=== PATIENT | female | born 1965 | race Caucasian/White ===

== ENCOUNTER 2020-05-25 18:24 | Observation (INO) | payer OTHER ==
[~2020-05-25] VITALS: Ht 152.4 cm; Wt 150.1 kg
[~2020-05-25 18:24] MED LIST: ASCO500 PO; ASPI81CH; ASPI81CH PO; ASPI81EC PO; ATEN50; BCP'S; CHOL10002 PO; CITA20 PO; CYAN1000; CYAN500 PO; DEXALANT PO; DULO30 PO; Daily Vite1 EACH PO; ERGO400 PO; ESOM20; FERR325; FERR325 PO; FISH1000; FISH1000 PO; Fish Oil 10001000 MG PO; HYDACE10B PO; HYDACE5 PO; HYDCHL25; HYDCHL25 PO; Hair, Skin & N1 EACH PO; IRON PO; LISI20 PO; LORA2 PO; LOSA25 PO; LOSA50; LOSA50 PO; MAGOXI400 PO; METF500; METF500 PO; MULTI VITAMIN1 EACH; MULVITMIND PO; NAPR500 PO; Nephro-Vite RX1 EA SL; ONDA4 PO; Omeprazole20 M1 PO; PANT40; PANT40 PO; PROM25 PO; RXLORA1 PO; SPIR25; SPIR25 PO; SULTRIDS PO; VENL37.5; VENL75ER PO; Vitamin D2000 UNIT; [UNRECOGNIZED DRUG - REMARK]
[2020-05-25 19:19] LABS: BASOPHILS ABSOLUTE AUTO 0.13 K/mm3 (0.00-0.23); BASOPHILS PERCENT AUTO 1 % (0-2); EOSINOPHILS ABSOLUTE AUTO 0.18 K/mm3 (0.00-0.68); EOSINOPHILS PERCENT AUTO 1 % (0-6); Hematocrit 45.5 % (33.0-51.0); Hemoglobin 13.9 g/dL (11.5-16.0); IMMATURE GRAN ABSOLUTE AUTO 0.07 K/mm3 (0.00-0.10); IMMATURE GRAN PERCENT AUTO 0 % (0-1); LYMPHOCYTES ABSOLUTE AUTO 4.79 K/mm3 (0.84-5.20); LYMPHOCYTES PERCENT AUTO 29 % (21-46); MONOCYTES ABSOLUTE AUTO 1.08 K/mm3 (0.16-1.47); MONOCYTES PERCENT AUTO 7 % (4-13); Mean Corpuscular HGB Conc 30.5 g/dL (31.5-36.5); Mean Corpuscular Volume 88 fL (80-100); NEUTROPHILS ABSOLUTE AUTO 10.44 K/mm3 (1.96-9.15); NEUTROPHILS PERCENT AUTO 63 % (41-73); Platelet Count 374 K/mm3 (150-400); RDW Coefficient Variation 13.7 % (11.7-14.2); RDW Standard Deviation 44.5 fL (35.1-46.3); Red Blood Cell Count 5.15 M/mm3 (3.80-5.20); White Blood Cell Count 16.69 K/mm3 (4.00-11.30)
[2020-05-25 19:43] LABS: Alanine Aminotransfer (ALT/SGP 33 U/L (12-78); Albumin, Blood 3.5 g/dL (3.4-5.0); Albumin/Globulin Ratio 0.7 (0.8-1.8); Alk Phos 170 U/L (50-136); Anion Gap 11 mmol/L (6-16); Aspartate Aminotrans (AST/SGOT 28 U/L (12-37); Bilirubin, Total 0.4 mg/dL (0.1-1.0); Blood Urea Nitrogen 16 mg/dL (8-24); Bun/Creatinine Ratio 28.5 (12.0-20.0); CO2, Blood 19 mmol/L (21-32); Calcium, Blood 9.6 mg/dL (8.5-10.1); Chloride, Blood 105 mmol/L (98-108); Creatinine, Blood 0.56 mg/dL (0.40-1.00); Globulin, Blood 4.7 g/dL (2.2-4.0); Glomerular Filtration Rate >60 (60-); Glucose, Blood 94 mg/dL (70-99); Potassium, Blood 4.3 mmol/L (3.5-5.5); Sodium, Blood 135 mmol/L (136-145); Total Protein, Blood 8.2 g/dL (6.4-8.2); Troponin I <0.015 ng/mL (0.000-0.040)
[2020-05-25] MEDS ORDERED: NORTRIPTYLINE H10 M1 PO (20:49)
[2020-05-25] MEDS ORDERED: ZANAFLEX4 M1 PO (20:50)
[2020-05-25] MEDS ORDERED: Lovastatin20 MG PO (20:51)
[2020-05-25] MEDS ORDERED: Aspir 8181 MG PO (20:53)
[2020-05-25] MEDS ORDERED: LOSA50 PO (21:08)
[2020-05-25] MEDS ORDERED: MELATONIN5 M1 PO (21:09)
[2020-05-25] MEDS ORDERED: FISH OIL 1,2001 EAC7 PO (22:21)
[2020-05-26 03:17] LABS: BASOPHILS PERCENT AUTO 1 % (0-2); EOSINOPHILS ABSOLUTE AUTO 0.12 K/mm3 (0.00-0.68); EOSINOPHILS PERCENT AUTO 1 % (0-6); Hematocrit 40.6 % (33.0-51.0); Hemoglobin 12.7 g/dL (11.5-16.0); IMMATURE GRAN ABSOLUTE AUTO 0.04 K/mm3 (0.00-0.10); IMMATURE GRAN PERCENT AUTO 0 % (0-1); LYMPHOCYTES ABSOLUTE AUTO 4.44 K/mm3 (0.84-5.20); LYMPHOCYTES PERCENT AUTO 31 % (21-46); MONOCYTES ABSOLUTE AUTO 0.81 K/mm3 (0.16-1.47); MONOCYTES PERCENT AUTO 6 % (4-13); Mean Corpuscular HGB Conc 31.3 g/dL (31.5-36.5); Mean Corpuscular Volume 86 fL (80-100); NEUTROPHILS ABSOLUTE AUTO 8.91 K/mm3 (1.96-9.15); NEUTROPHILS PERCENT AUTO 62 % (41-73); Platelet Count 376 K/mm3 (150-400); RDW Coefficient Variation 13.6 % (11.7-14.2); RDW Standard Deviation 43.2 fL (35.1-46.3); White Blood Cell Count 14.42 K/mm3 (4.00-11.30)
[2020-05-26 03:39] LABS: Alanine Aminotransfer (ALT/SGP 33 U/L (12-78); Albumin, Blood 3.3 g/dL (3.4-5.0); Albumin/Globulin Ratio 0.8 (0.8-1.8); Alk Phos 154 U/L (50-136); Anion Gap 6 mmol/L (6-16); Aspartate Aminotrans (AST/SGOT 22 U/L (12-37); Bilirubin, Total 0.4 mg/dL (0.1-1.0); Blood Urea Nitrogen 13 mg/dL (8-24); Bun/Creatinine Ratio 18.6 (12.0-20.0); CO2, Blood 28 mmol/L (21-32); CPK Creatine Kinase 62 U/L (26-193); Calcium, Blood 9.3 mg/dL (8.5-10.1); Chloride, Blood 107 mmol/L (98-108); Globulin, Blood 4.4 g/dL (2.2-4.0); Glomerular Filtration Rate >60 (60-); Glucose, Blood 104 mg/dL (70-99); Potassium, Blood 3.9 mmol/L (3.5-5.5); Sodium, Blood 141 mmol/L (136-145); Total Protein, Blood 7.7 g/dL (6.4-8.2); Troponin I <0.015 ng/mL (0.000-0.040)
--- NOTE | 2020-05-26 05:24 | NUR ---
SHIFT SUMMARY- PT. NEW ADMIT FROM ED. A&OX4, INDEPENDENT IN ROOM. NO COMPLAINTS OF CP T/O THE NIGHT AND BP IMPROVED. MEDICATED X1 FOR SCHMIDT PER EMAR WITH GOOD EFFECT. PT. ASLEEP DURING MOST OF THE NIGHT, NO APPARENT DISTRESS NOTED. DENIED ANY OTHER NEEDS THIS SHIFT. SR ON TELE. CALL LIGHT WITHIN REACH AND SIDE RAILS UPX2. WILL CONT TO MONITOR.
[2020-05-26 11:33] LABS: CPK Creatine Kinase 79 U/L (26-193); Troponin I <0.015 ng/mL (0.000-0.040)
--- NOTE | 2020-05-26 12:00 | NUR ---
ASSUMED CARE OF PATIENT, REPORTS RECEIVED FROM BRANDT HOOKER. PATIENT DENIES ANY CP AT THIS TIME. REPORTS A MILD SCHMIDT WHICH WAS TREATED WITH TYLENOL. PATIENT IS NSR IN THE 80;S ON TELE. STRESS TEST SCHEDULED FOR THIS AFTERNOON. PATIENT DENIES ANY NEEDS AT THIS TIME. A/O AND INDEPENDENT IN ROOM. INSTRUCTED TO CALL FOR ASSISTANCE.
--- NOTE | 2020-05-26 13:57 | NUR ---
Patient did not eat lunch this shift due to being NPO at this time for a procedure.
--- NOTE | 2020-05-26 18:00 | NUR ---
PATIENT A/OX4, UP INDEPENDENTLY IN ROOM. VSS, ON RA. DENIES ANY CP THIS SHIFT. FIRST PART OF STRESS TEST COMPLETED TODAY AND SECOND PART WILL BE IN THE AM. PATIENT TO BE NPO AFTER MN. TOLERATING CARDIAC DIET TODAY. TYLENOL GIVEN X1 THIS SHIFT FOR A HEADACHE. CALM AND COOPERATIVE WITH CARE, CALLS APPROPRIATELY FOR ASSISTANCE.
--- NOTE | 2020-05-27 05:45 | NUR ---
SHIFT SUMMARY- NO ACUTE EVENTS OVERNIGHT. PT. APPEARED TO BE SLEEPING COMFORTABLY IN BED DURING THE NIGHT, NO APPARENT DISTRESS NOTED. DENIED CP THIS SHIFT, VSS. PT. SCHEDULED FOR SECOND PART OF STRESS TEST THIS AM. HAS BEEN NPO SINCE MN. CALL LIGHT WITHIN REACH AND SIDE RAILS UPX2. WILL CONT TO MONITOR.
--- NOTE | 2020-05-27 07:10 | NUR ---
ASSUMED CARE: PT ALERT AND ORIENTED, AWAKE, SITTING UP IN CHAIR. DENIES CHEST PAIN. NO ACUTE NEEDS OR CONCERNS AT THIS TIME.
--- NOTE | 2020-05-27 07:51 | NUR ---
RASPBERRY CHECKER AT BEDSIDE WITH ULTRASOUND TO PLACE NEW IV DUE TO PAIN AND SWELLING OF SHAR IV
--- NOTE | 2020-05-27 11:00 | NUR ---
PT TAKEN TO [facility] FOR SECOND PORTION OF STRESS TEST
--- NOTE | 2020-05-27 12:17 | NUR ---
PT RETURNED FROM [facility].
--- NOTE | 2020-05-27 14:24 | NUR ---
ATTEMPTED TO CALL DR JENKINS TO TELL ABOUT STRESS TEST RESULTS. NO ANSWER. CALL TO DR CAN. AWAITING DC ORDERS.
[2020-05-27] MEDS ORDERED: HYDCHL25 PO (16:09)
--- NOTE | 2020-05-27 16:26 | NUR ---
PT'S IV DC'D WNL. PT GIVEN DC INSTRUCTIONS INCLUDING WHAT MEDS TO DC AND WHICH TO CONTINUE WELL FOLLOW UP APPOINTMENTS. DENIED FURTHER QUESTIONS OR CONCERNS. ESCORTED OUT VIA WHEELCHAIR BY HOSPITAL STAFF
== END 2020-05-27 16:25 | disposition home or self-care (01) ==
LOC: ER 18:24 → MEDS 18:25
PROVIDERS: Physician Assistant; ADMIT Internal Medicine
DX: R07.89 Other chest pain (principal); R73.03 Prediabetes; D72.829 Elevated white blood cell count, unspecified; K21.9 Gastro-esophageal reflux disease without esophagitis; E78.5 Hyperlipidemia, unspecified; E66.01 Morbid (severe) obesity due to excess calories; I10 Essential (primary) hypertension; F32.9 Major depressive disorder, single episode, unspecified; Z79.82 Long term (current) use of aspirin; Z79.899 Other long term (current) drug therapy; Z88.2 Allergy status to sulfonamides; Z88.8 Allergy status to other drugs, medicaments and biological substances
CPT/HCPCS: 36415; 71046; 78452; 80053; 82550; 84484; 85025; 93005; 93010; 93017; 96372; 99285-25; A9270; A9270-GY; A9500; G0378; J0706; J1650; J2785

== ENCOUNTER 2020-11-28 08:43 | Day surgery (SDC) | payer OTHER, SELFPAY ==
[~2020-11-28] VITALS: Ht 149.9 cm; Wt 130.2 kg
[~2020-11-28 08:43] MED LIST changes: +Aspir 8181 MG PO; +FISH OIL 1,2001 EAC7 PO; +Lovastatin20 MG PO; +MELATONIN5 M1 PO; +NORTRIPTYLINE H10 M1 PO; +ZANAFLEX4 M1 PO
--- NOTE | 2020-11-28 09:39 | NUR ---
History, Chart, Medications and Allergies reviewed before start of procedure. Lungs clear T/O to Auscultation. Patient confirms NPO status and agrees with scheduled surgery. Pre-Op teaching done. Pt verbalizes understanding. Patient States Post-Procedure ride home has been arranged.
--- NOTE | 2020-11-28 10:42 | NUR ---
11/28/20 1042 Odalis Diaz MONITOR INTACT WITH CONTINUOUS PULSE OXIMETRY AND INTERMITTENT BP. SEE PAPER ANESTHSIA FLOWSHEET. CARE BY .
--- NOTE | 2020-11-28 11:29 | NUR ---
Patient up to Ambulate independently. Gait steady. Discharge instructions reviewed with patient. Patient verbalizes understanding. Copy given to patient to take home. Discharged via wheelchair to private car for ride home.
== END 2020-11-28 11:27 | disposition home or self-care (01) ==
LOC: ORSCMMR 08:43 → ORD 10:00 → ORSCMMR 10:00
PROVIDERS: Internal Medicine Gastroenterology
PROC: 0DB68ZX Excision of Stomach, Via Natural or Artificial Opening Endoscopic, Diagnostic (ICD-10-PCS; principal; 2020-11-28 10:00)
PROC: 0DB88ZX Excision of Small Intestine, Via Natural or Artificial Opening Endoscopic, Diagnostic (ICD-10-PCS; principal; 2020-11-28 10:00)
DX: K74.3 Primary biliary cirrhosis (principal); K57.30 Diverticulosis of large intestine without perforation or abscess without bleeding; K44.9 Diaphragmatic hernia without obstruction or gangrene; I10 Essential (primary) hypertension; K21.9 Gastro-esophageal reflux disease without esophagitis; E78.00 Pure hypercholesterolemia, unspecified; R79.89 Other specified abnormal findings of blood chemistry; E66.01 Morbid (severe) obesity due to excess calories; Z68.43 Body mass index [BMI] 50.0-59.9, adult; Z79.82 Long term (current) use of aspirin; Z79.899 Other long term (current) drug therapy
CPT/HCPCS: 82947; 88305; 88342; J2704; J7120